=== PATIENT | female | born 1960 | race Caucasian/White ===

== ENCOUNTER 2016-06-29 10:11 | Emergency (ER) | payer MEDICAID ==
[2016-06-29 10:19] VITALS: RESP 18; O2SAT 96
--- NOTE | 2016-06-29 10:39 | EDPHY ---
H & P Time Seen by Provider: 06/29/16 10:22 HPI/ROS: CHIEF COMPLAINT: I have vertigo HISTORY OF PRESENT ILLNESS: 55-year-old female with prior history of self- described vertigo diagnosed few years ago, states that for the past 1 month she has been experiencing intermittent episodes described as sudden onset of room spinning, worse with head movement, better if she is sitting still. Symptoms spontaneously will resolve. She saw her primary care provider 1 month ago and notes that symptoms continue. Currently in emergency department she is asymptomatic. She is concerned because her job requires her to climb to heights including ladders. She has not fallen. No head or neck trauma or manipulation. No facial symptoms. No visual symptoms such as diplopia or blurry vision. No hearing loss, no tinnitus, no barotrauma. No otorrhea. No gait instability. No slurred speech. No vasculopathy history PRIMARY CARE PROVIDER: [facility] REVIEW OF SYSTEMS: A ten point review of systems was performed and is negative with the exception of the items mentioned in the HPI PAST MEDICAL & SURGICAL HISTORY: no vasculopathy history. SOCIAL HISTORY:no drug use PHYSICAL EXAM (Prior to examination, patient consented to physical exam, hands were washed and my usual and customary physical exam procedures followed) 1) GENERAL: Well-developed, well-nourished, alert and oriented. Appears to be in no acute distress. 2) HEAD: Normocephalic, atraumatic 3) HEENT: Pupils equal, round, reactive to light bilaterally. Sclera anicteric. no nystagmus Nasopharynx, oropharynx, clear, no lesions. Ears bilaterally with normal tympanic membranes. No otorrhea 4) NECK: Full range of motion, no meningeal signs. 5) LUNGS: Clear auscultation bilaterally, no wheezes, no rhonchi, no retractions. 6) HEART: Regular rate and rhythm, no murmur, no heave, no gallop. 7) ABDOMEN: No guarding, no rebound, no focal tenderness, negative McBurney's, 8) MUSCULOSKELETAL: Moving all extremities, no focal areas of tenderness, no obvious trauma. No peripheral edema or discoloration. 9) BACK: No CVA tenderness, no midline vertebral tenderness, no fluctuance, no step-off, no obvious trauma, no visual or palpable abnormality. 10) SKIN: No rash, no petechiae. 11) Psychiatric: Patient is oriented X 3, there is no agitation. 12) NEURO: Awake, alert, and oriented to person, place and time. Answers questions appropriately. There were no obvious focal neurologic abnormalities. No cerebellar dysfunction. Cranial nerves 2 through to 12 intact. Normal steady gait. Upper and lower extremities bilaterally with strength 5 / 5, reflexes 2+. Smoking Status: Light smoker Constitutional: Initial Vital Signs Temperature (C) 36.9 C 06/29/16 10:16 Heart Rate 71 06/29/16 10:16 Respiratory Rate 18 06/29/16 10:16 Blood Pressure 159/75 H 06/29/16 10:16 O2 Sat (%) 96 06/29/16 10:16 O2 Delivery Mode Room Air Allergies/Adverse Reactions: No Known Allergies Allergy (Verified 06/29/16 10:14) Home Medications: Medication Instructions Recorded Levothyroxine [Synthroid 88 mcg 88 mcg PO DAILY06 10/21/14 (*)] Lisinopril 06/29/16 Meclizine HCl [Antivert] 25 mg PO Q6 PRN #15 tab 06/29/16 MDM/Departure - [facility] ED Course/Re-evaluation: This patient has a nonfocal neurologic exam and is currently asymptomatic. She has no vasculopathy history. Patient an eye discussed potential etiologies, discussed my differential diagnosis with her. Discussed case Dr. Brandy Monaco in the ER. I think that central etiology, acoustic neuroma, vasculopathy, less than likely in this patient at this time. She remains asymptomatic while in the emergency department. At this time I do not think that emergent imaging is currently indicated. However we had a lengthy discussion provided her with my usual and customary neurologic and vertiginous precautions and instructions which include, but are not limited to, no climbing to height, no climbing of ladders and similar structures at height. She does note that her job does require to sometimes climb and I discussed the potential dangers of doing this if she is symptomatic. I am prescribing her Antivert and also recommend she not take this if she is working or planning on working. I think that follow up with primary care neurology is appropriate. Differential Diagnosis: In no particular including but not limited to benign positional vertigo, Meniere 's disease, malignancy, vasculopathy, acoustic neuroma, vestibular neuritis - Depart Disposition: Home, Routine, Self-Care Clinical Impression: Vertigo Condition: Good Instructions: Vertigo (ED) Additional Instructions: If you develop new or worsening symptoms, if you develop hearing loss, headache , neck pain, inability walk, call 911. Do not climb ladders and similar structures. Do not take the medication Antivert if you are working or going to work. Stand Alone Forms: Work Limited Duty Prescriptions: Meclizine HCl [Antivert] 25 mg PO Q6 PRN #15 tab PRN Reason: Dizziness Referrals: Samina Juarez, PAC [Primary Care Provider] - 1-2 days without fail Usman Zarate DO [Doctor of Osteopathy] - 5-7 days, call for appt. (Dr Zarate is a neurologist)
[2016-06-29 11:35] VITALS: BP 153/89; PULSE 74; TEMP 98.8
== END 2016-06-29 11:35 | disposition home or self-care (01) ==
DX: R42 Dizziness and giddiness (principal); F17.200 Nicotine dependence, unspecified, uncomplicated

== ENCOUNTER 2017-05-07 08:45 | Observation (INO) | payer MEDICAID ==
--- NOTE | 2017-05-07 09:07 | CPEKG ---
Heart Rate: 69 RR Interval: 870 P-R Interval: 144 QRSD Interval: 82 QT Interval: 396 QTC Interval: 425 P [place]: 3 QRS [place]: 20 T Wave [place]: 257 EKG Severity - ABNORMAL ECG - EKG Impression: SINUS RHYTHM EKG Impression: LVH WITH SECONDARY REPOLARIZATION ABNORMALITY Electronically Signed By: Marco Rico 08-May-2017 06:59:18
[2017-05-07] MEDS ORDERED: ASPIRIN 81 MG CHEWABLE TAB PO ONE (09:10)
[2017-05-07] MEDS ORDERED: NS 500 ML IV ONE (09:10)
--- NOTE | 2017-05-07 09:13 | EDPHY ---
General Narrative: CHIEF COMPLAINT: Chest pain HISTORY OF PRESENT ILLNESS: Patient complains of chest pain. This chest pain started abruptly at 6:30 a.m. while at rest. It is a sharp, constant left-sided retrosternal pain. No worse with exertion. She did have some diaphoresis and nausea when it started. Worse with inspiration. Some shortness of breath. No cough. No recent travel , trauma or surgery. No history of venous thrombolic event. No exogenous steroid or hormone use. No extremity erythema edema or pain. No previous coronary artery disease. No previous cardiac workup. Grandmother positive for coronary artery disease. REVIEW OF SYSTEMS: Ten systems reviewed and are negative unless otherwise noted in the HPI PCP: Dr. Samina Del Valle SPECIALISTS: None PAST MEDICAL HISTORY: Hypertension, hypothyroid, congenital murmur, postmenopausal PAST SURGICAL HISTORY: x5 SOCIAL HISTORY: Nonsmoker. Occasional alcohol. No drug use. FAMILY HISTORY: EXAMINATION General Appearance: Alert, no distress Head: normocephalic, atraumatic Eyes: Pupils equal and round, no conjunctival pallor or injection ENT, Mouth: Mucous membranes moist Neck: Normal inspection, supple, non-tender Respiratory: Lungs are clear to auscultation. No wheeze, rhonchi or crackles Cardiovascular: Regular rate and rhythm. No murmur appreciated despite stated history Gastrointestinal: Abdomen is soft and nontender Back: non-tender, no bony abnormalities Neurological: GCS 15. A&O, nonfocal, normal gait Skin: Warm and dry, no rash. No petechiae or purpura Extremities: Nontender, no pedal edema Psychiatric: Mood and affect normal DIFFERENTIAL DIAGNOSES: Including but not limited to ACS, PE, reflux, pneumonia, bronchitis, chest pain NOS MDM: 9:10 a.m. Acute chest pain of less than 3 hours duration. EKG is unremarkable. Vital signs stable. Laboratory studies pending. Chest x-ray ordered. No previous cardiac workup for diagnosis of coronary artery disease. Patient will likely need to be observed for serial troponins should the initial troponin be negative. She had 81 mg aspirin EN route, I have ordered the remaining 243 mg. 9:40 a.m. CBC unremarkable. D-dimer is negative. Troponin is pending. Chest x-ray as read by me reveals no acute finding. There is some perihilar fullness. No pneumonia. No pneumothorax. No hemothorax. 10:13 a.m. Troponin is negative. Chest x-ray has been read by radiologist is clear. I have re-evaluated the patient. Pain is still present. She has been ruled out for PE. First troponin is negative, but this is not yet sensitive enough to definitively rule out ACS. Thus I will admit her for observation and serial troponins. The patient is agreeable this. Additionally, her blood pressure is 200/160. I have ordered lisinopril p.o. as she has missed this for several days. I have also ordered a dose of morphine as her pain persist. 10:20 a.m. Case discussed with hospitalist Dr. Ring. She will admit the patient to her service. She is admitted in stable condition. - Diagnostics Imaging Results: Imaging Impressions Chest X-Ray 05/07/17 09:11 Impression: Clear lungs. No acute process. - History Smoking Status: Light smoker - Objective Vital Signs: Initial Vital Signs Temperature (C) 98.3 F 05/07/17 08:51 Heart Rate 99 05/07/17 08:51 Respiratory Rate 15 05/07/17 08:51 Blood Pressure 198/122 H 05/07/17 08:51 O2 Sat (%) 96 05/07/17 08:51 O2 Delivery Mode Room Air Allergies/Adverse Reactions: No Known Allergies Allergy (Verified 06/29/16 10:14) Home Medications: Medication Instructions Recorded Levothyroxine [Synthroid 88 mcg 88 mcg PO DAILY06 10/21/14 (*)] Lisinopril 06/29/16 Meclizine HCl [Antivert] 25 mg PO Q6 PRN #15 tab 06/29/16 Laboratory Results: Laboratory Results 05/07/17 09:12 05/07/17 09:12 05/07/17 05/07/17 05/07/17 09:12 09:12 09:12 WBC 5.92 10^3/uL 10^3/uL (3.80-9.50) RBC 4.43 10^6/uL 10^6/uL (4.18-5.33) Hgb 15.1 g/dL g/dL (12.6-16.3) Hct 41.3 % % (38.0-47.0) MCV 93.2 fL fL (81.5-99.8) MCH 34.1 pg pg (27.9-34.1) MCHC 36.6 g/dL g/dL (32.4-36.7) RDW 12.3 % % (11.5-15.2) Plt Count 280 10^3/uL 10^3/uL (150-400) MPV 10.0 fL fL (8.7-11.7) Neut % (Auto) 54.9 % % (39.3-74.2) Lymph % (Auto) 31.8 % % (15.0-45.0) [place] % (Auto) 7.6 % % (4.5-13.0) Eos % (Auto) 4.7 % % (0.6-7.6) Baso % (Auto) 0.7 % % (0.3-1.7) Nucleat RBC Rel Count 0.0 % % (0.0-0.2) Absolute Neuts (auto) 3.25 10^3/uL 10^3/uL (1.70-6.50) Absolute Lymphs (auto) 1.88 10^3/uL 10^3/uL (1.00-3.00) Absolute Monos (auto) 0.45 10^3/uL 10^3/uL (0.30-0.80) Absolute Eos (auto) 0.28 10^3/uL 10^3/uL (0.03-0.40) Absolute Basos (auto) 0.04 10^3/uL 10^3/uL (0.02-0.10) Absolute Nucleated RBC 0.00 10^3/uL 10^3/uL (0-0.01) Immature Gran % 0.3 % % (0.0-1.1) Immature Gran # 0.02 10^3/uL 10^3/uL (0.00-0.10) PT 13.5 SEC SEC (12.0-15.0) INR 1.04 (0.83-1.16) APTT 27.9 SEC SEC (23.0-38.0) D-Dimer < 0.27 ug/mLFEU ug/mLFEU (0.00-0.50) Sodium 143 mEq/L mEq/L (134-144) Potassium 3.6 mEq/L mEq/L (3.5-5.2) Chloride 105 mEq/L mEq/L (97-110) Carbon Dioxide 23 mEq/l mEq/l (22-31) Anion Gap 15 mEq/L mEq/L (8-16) BUN 13 mg/dL mg/dL (7-23) Creatinine 0.8 mg/dL mg/dL (0.6-1.0) Estimated GFR > 60 Glucose 79 mg/dL mg/dL (70-100) Calcium 10.1 mg/dL mg/dL (8.5-10.4) Troponin I < 0.012 ng/mL ng/mL (0.000-0.034) Lipase 184 IU/L IU/L (23-300) Medications Given: Discontinued Medications Aspirin (Aspirin) 243 mg PO EDNOW ONE Stop: 05/07/17 09:11 Last Admin: 05/07/17 09:30 Dose: 243 mg Sodium Chloride (Ns) 500 mls @ 0 mls/hr IV EDNOW ONE; Wide Open PRN Reason: Protocol Stop: 05/07/17 09:11 Last Admin: 05/07/17 09:30 Dose: 500 mls Departure - Departure Disposition: [facility] Inpatient Acute Clinical Impression: Acute chest pain Hypertension Qualifiers: Hypertension type: essential hypertension Qualified Code(s): I10 - Essential ( primary) hypertension Condition: Good Referrals: Samina Juarez PAC [Primary Care Provider] - As per Instructions
[2017-05-07 09:26] LABS: % IMMATURE GRANULYOCYTES 0.3 % (0.0-1.1); ABSOLUTE IMMATURE GRANULOCYTES 0.02 10^3/uL (0.00-0.10); ADD DIFF? NO; ADD MORPH? NO; ADD SCAN? NO; ATYPICAL LYMPHOCYTE FLAG 0 (0-99); FRAGMENT RBC FLAG 0 (0-99); HEMATOCRIT 41.3 % (38.0-47.0); HEMOGLOBIN 15.1 g/dL (12.6-16.3); LEFT SHIFT FLG 0 (0-99); LIPEMIA HEMOLYSIS FLAG 90 (0-99); MEAN CELL HEMOGLOBIN 34.1 pg (27.9-34.1); MEAN CELL HEMOGLOBIN CONCENTR. 36.6 g/dL (32.4-36.7); MEAN CELL VOLUME 93.2 fL (81.5-99.8); PLATELET CLUMPS FLAG 10 (0-99); PLATELET COUNT 280 10^3/uL (150-400); RED BLOOD CELL COUNT 4.43 10^6/uL (4.18-5.33); RED CELL DISTRIBUTION WIDTH 12.3 % (11.5-15.2)
[2017-05-07 09:31] LABS: INR 1.04 (0.83-1.16); PROTIME(PATIENT) 13.5 SEC (12.0-15.0)
[2017-05-07 09:32] LABS: APTT 27.9 SEC (23.0-38.0)
[2017-05-07 09:51] LABS: ANION GAP 15 mEq/L (8-16); CALCIUM 10.1 mg/dL (8.5-10.4); CARBON DIOXIDE 23 mEq/l (22-31); CHLORIDE 105 mEq/L (97-110); CREATININE 0.8 mg/dL (0.6-1.0); GLOMERULAR FILTRATION RATE > 60; GLUCOSE 79 mg/dL (70-100); POTASSIUM 3.6 mEq/L (3.5-5.2); SODIUM 143 mEq/L (134-144)
[2017-05-07 10:02] LABS: TROPONIN I < 0.012 ng/mL (0.000-0.034)
[2017-05-07] MEDS ORDERED: LISINOPRIL 20 MG TAB PO ONE ×2 (10:12→11:38)
[2017-05-07] MEDS ORDERED: ONDANSETRON 4 MG/2 ML VIAL IVP PRN (10:21)
[2017-05-07] MEDS ORDERED: ACETAMINOPHEN 325 MG TAB PO PRN (10:21)
[2017-05-07] MEDS ORDERED: ONDANSETRON DISINTEGRATING 4 MG TAB PO PRN (10:21)
[2017-05-07] MEDS ORDERED: LABETALOL HCL 50 MG/10 ML SYR IVP ONE (11:24)
[2017-05-07] MEDS ORDERED: ASPIRIN 325 MG TAB PO PRN (11:30)
[2017-05-07] MEDS ORDERED: LABETALOL HCL 5 MG/ML 20 ML MDV IVP ONE (11:45)
--- NOTE | 2017-05-07 12:06 | GHP ---
[f rep st] HISTORY AND PHYSICAL DATE OF ADMISSION: 05/07/2017 CHIEF COMPLAINT: Chest pain. HISTORY OF PRESENT ILLNESS: A 56-year-old female with a history of hypertension in the past, not actively taking medications who presents with complaints of chest pain that began at approximately 6:30 in the morning the day of presentation. Patient reports that she was eating breakfast when she noted the discomfort in her chest. Patient describes it as sharp discomfort beginning substernally on the left side of her chest and then radiating around both sides of her chest to her back and localizing on the left side of her spine subscapular. Patient describes it being associated with some shortness of breath, diaphoresis, no nausea or vomiting. Patient denies any previous episodes of pain similar to this in the past. Patient does report being prescribed blood pressure medications in the past, however she has not been taking any. Reports that she has been cutting down on her smoking and has been using dietary supplements to assist in weight loss. She reports that they do have a tendency to give her tachycardia after she takes them. Patient denies any hematuria, dysuria or lower extremity edema. Denies any headache. Reports she has had fuzzy vision and has not been to an broke handler recently. PAST MEDICAL HISTORY: 1. Hypertension. 2. Hypothyroidism. 3. Reported history of pancreatic cyst. 4. History of alcohol use in the past. SOCIAL HISTORY: Patient smokes 1-2 cigarettes a day, has cut back from previous , has approximately 10 pack year history. Reports alcohol only occasionally, less than a couple times a week. Denies illicit drugs or marijuana. FAMILY HISTORY: Positive for heart disease in an uncle as well as a grandmother. REVIEW OF SYSTEMS: A 10-point review of systems is negative with the exception of that reported in the HPI. PHYSICAL EXAMINATION: VITAL SIGNS: Blood pressure 237/125, heart rate 69, respiratory rate 16, saturating 98% on room air, 35.8. GENERAL: This is a nervous appearing middle-aged female in mild distress. HEENT: Notable for moist mucous membranes. Eye exam is negative for any icterus. CARDIAC: Patient is regular rate and rhythm. No murmurs, gallops, or rubs are appreciated. PULMONARY: She is clear to auscultation bilaterally. GASTROINTESTINAL: Positive bowel sounds. ABDOMEN: Soft. MUSCULOSKELETAL: Negative for any lower extremity edema. SKIN: Negative for any rashes. NEUROLOGIC: She is alert and oriented x3. PSYCHIATRIC: She is anxious on my interview and examination. DATA: White count 5.9, hematocrit 41.3, platelets of 280. D-dimer less than 0.27. Troponin less than 0.012. Creatinine 0.8. EKG, which I personally reviewed and interpreted, shows sinus rhythm, normal axis, normal intervals, with T-wave inversions and downsloping ST-segment in V4 through V6. Chest x-ray , which I personally reviewed and interpreted, shows no infiltrates or edema, mediastinum is normal. ASSESSMENT AND PLAN: This is a 56-year-old female presenting with chest pain. 1. Hypertensive urgency. Patient is presenting with systolic blood pressures in the 240s with reported history of hypertension, currently untreated with concomitant use of stimulant weight loss medications. Will initiate intravenous labetalol to bring down the blood pressure by approximately 20% in the next few hours. Ideally, will initiate the patient on her oral regimen that she can transition to tomorrow. Will continue telemetry monitoring and close blood pressure monitoring on the Progressive Care Unit. 2. Chest pain. The patient's initial troponin and EKG are normal. Will admit the patient to the Progressive Care Unit for telemetry, serial troponins, EKGs and ultimately stress testing if her blood pressure is better controlled by tomorrow. Again, have advised the patient on the importance of avoiding weight loss medications going forward. Will check TSH and ideally obtain nuclear imaging so we can get a good look at the patient's ejection fraction tomorrow as well. 3. Hypothyroidism. Will check TSH. Continue her home dosing of Synthroid. 4. Prophylaxis with ambulation, diet and cardiac. DISPOSITION: I expect in less than 2 midnights if the patient rules out overnight and has rapid control of her malignant hypertension that is. I have discussed the case with the emergency room physician. Patient will be triaged to the PCU for care. /[id number]/MODL MTDD
[2017-05-07 12:34] LABS: PHENCYCLIDINE URINE BCH < 6 ng/ml (NEGATIVE); PHENCYCLIDINE URINE BCH NEGATIVE (NEGATIVE); TETRAHYDROCANNABINOL URINE < 5 ng/mL (NEGATIVE); TETRAHYDROCANNABINOL URINE NEGATIVE (NEGATIVE)
--- NOTE | 2017-05-07 14:00 | CPEKG ---
Heart Rate: 64 RR Interval: 938 P-R Interval: 144 QRSD Interval: 86 QT Interval: 428 QTC Interval: 442 P [place]: 21 QRS [place]: 27 T Wave [place]: 220 EKG Severity - ABNORMAL ECG - EKG Impression: SINUS RHYTHM EKG Impression: PROBABLE LVH WITH SECONDARY REPOL ABNRM Electronically Signed By: Milton Pulido 07-May-2017 15:38:38
[2017-05-07] MEDS ORDERED: LABETALOL HCL 100 MG TAB PO PRN (14:24)
[2017-05-08] MEDS ORDERED: LEVOTHYROXINE 75 MCG TAB PO SCH (06:00)
[2017-05-08] MEDS ORDERED: REGADENOSON 0.4 MG/5 ML SYR IVP ONE (08:32)
[2017-05-08] MEDS ORDERED: ASPIRIN 325 MG TAB PO SCH (09:00)
[2017-05-08] MEDS ORDERED: HYDROCHLOROTHIAZIDE 25 MG TAB PO SCH (09:00)
[2017-05-08] MEDS ORDERED: CETIRIZINE 10 MG TAB PO SCH (09:00)
[2017-05-08] MEDS ORDERED: LISINOPRIL 40 MG TAB PO SCH (09:00)
--- NOTE | 2017-05-08 11:30 | ASMTCMCOM ---
CM Note CM Note Notes: Chart reviewed. Met with patient to discuss dc plan of care. She reports she recently broke up with her boyfriend. She reports she is homeless. Staying at skilled nursing. Trying to access housing through services at skilled nursing. Plan dc to skilled nursing when medically cleared. Date Signed: 05/08/2017 11:30 AM Electronically Signed By:Laurence Rice RN
[2017-05-08 12:02] VITALS: BP 174/100; PULSE 66; RESP 16; TEMP 98.8; O2SAT 96
--- NOTE | 2017-05-08 14:11 | CPR ---
[f rep st] NONINVASIVE CARDIAC PROCEDURE REPORT PROCEDURE: Lexiscan myocardial perfusion imaging study. SUPERVISING RN CVICU: Boogie Aguero MD INDICATION FOR PROCEDURE: Chest pressure, multiple cardiac risk factors, unable to run on treadmill. PRE: After obtaining informed consent and ensuring n.p.o. status of caffeine for greater than 12 jenna rs, patient was placed on electrocardiogram. Initial EKG shows sinus rhythm, normal axis, T-wave inv ersion in inferolateral leads, the patient denies any chest pain or shortness of breath, or symptoms suggesting of ischemia. Initial blood pressure 172/86, saturation 93%. INJECTION: Patient was given Lexiscan slow IV push, followed by nuclear isotope. Within 1 minute of injection, patient reporting flush sensation, shortness of breath, but no chest pressure or pain. E lectrocardiogram did show some deepening T-waves in inferior leads, but no other significant EKG rowley ges. Blood pressure did drop to 132/74 1 minute post injection, the patient was given caffeinated be verage, with reporting improvement of symptoms, when within 5 minutes all symptoms subsided, electroc ardiogram returned back to baseline. No malignant arrhythmias noted. The patient reporting all symp toms subsided within 5 minutes of injection. Final blood pressure of 164/84, saturation 94%. IMPRESSION: A 56-year-old female with family history of heart disease, admitted for chest pressure a nd pain, being evaluated for cardiac ischemia, noted to have abnormal electrocardiogram showing T-wav e inversion in inferolateral leads. Baseline EKG, showing potentially worsening deepening T-wave inv ersion 1 minute post injection, with return to baseline within 5 minutes, reporting flushing sensatio n and shortness of breath after injection which subsided with caffeinated beverage. Vital signs are stable. Patient is currently asymptomatic. She will finish post-stress MPI imaging in [facility] at this time. /[id number]/MODL
--- NOTE | 2017-05-08 18:41 | GDS ---
[f rep st] DISCHARGE SUMMARY DISCHARGE DIAGNOSES: Include: 1. Chest pain. 2. Hypertensive urgency. 3. Opiate abuse. 4. Tobacco dependence. HISTORY OF PRESENT ILLNESS: This is a 56-year-old female with a history of hypertension, who present s with complaints of chest pain. For details of the patient's initial presentation, please see the H istory and Physical dated 05/07/2017. CONSULTATIVE SERVICES: None. PROCEDURE: On 05/08/2017, patient had a Lexiscan cardiac stress test which showed no inducible ische sera. Ejection fraction was normal. HOSPITAL COURSE: By issue: 1. Hypertensive urgency: Patient presented with systolic blood pressures in the 200s with associate d blurring of her vision and associated chest pain. The patient was admitted to the PCU, treated ini tially with IV labetalol, and then transitioned back on to oral agents. On the day disposition arsalan anaya's systolic blood pressures are in the 160s to 170s on lisinopril 40 and hydrochlorothiazide 25. Blaise dinh is being discharged with Zestoretic as a new agent due to financial limitations and has been i nstructed to follow in her primary care office in the next 2 weeks for her 1st laboratory check post disposition on a new agent, hydrochlorothiazide. 2. Chest pain: Certainly concerning in the setting of her blood pressures. Patient's troponins and EKGs remained unchanged. Patient was taken for a cardiac stress test, and that showed no inducible ischemia or wall motion abnormalities. Patient is being discharged on her home dose of aspirin with new blood pressure agents and instructions to follow with her outpatient provider terminal gauger supervisor. MEDICATIONS AT DISPOSITION: Please reference the med rec printed on 05/08/2017. FOLLOWUP APPOINTMENTS: Include with her primary care provider in 2-3 weeks for her first laboratory check on the initiation of hydrochlorothiazide and a blood pressure check. TIME SPENT: I spent greater than 30 minutes in the planning and coordination of this discharge. PENDING STUDIES: At the time of this discharge, none. /[id number]/MODL
== END 2017-05-08 15:18 | disposition home or self-care (01) ==
LOC: F2W 10:55
PROVIDERS: ADMIT Hospitalist; ATTEND Hospitalist
DX: R07.9 Chest pain, unspecified (principal); I16.0 Hypertensive urgency; F11.10 Opioid abuse, uncomplicated; F17.210 Nicotine dependence, cigarettes, uncomplicated; I10 Essential (primary) hypertension; E03.9 Hypothyroidism, unspecified; Z82.49 Family history of ischemic heart disease and other diseases of the circulatory system; Z78.0 Asymptomatic menopausal state
CPT/HCPCS: 71020; 78452; 93005; 93017; 96374; 99285; G0378; 80307; G0480; J2785; J3490

== ENCOUNTER 2017-06-23 00:37 | Emergency (ER) | payer MEDICAID ==
--- NOTE | 2017-06-23 00:38 | EDPHY ---
H & P HPI/ROS: HPI CHIEF COMPLAINT: Left wrist deformity and pain. HISTORY OF PRESENT ILLNESS: Patient very pleasant 56-year-old female history of hypertension and thyroid disease she presents emergency room after she fell on outstretched left hand sustaining a left wrist injury. She states that she resides in a tractor trailer she was using a ladder to get up into the tractor trailer and fell off the ladder landing on her left outstretched hand. Now has 7/10 left wrist pain. She did receive 100 mcg IV fentanyl in route by EMS. She arrives neurovascular intact in a splint. She has full range of motion of her fingers. Good radial pulse but obvious deformity to left wrist. No other injuries. Past Medical History: Denies any medical history except for hypertension and thyroid disease noncompliant with her hypertension medication. Past Surgical History: Denies recent surgical history Social History: Denies daily use drugs alcohol tobacco. Family History: Noncontributory ROS REVIEW OF SYSTEMS: A comprehensive 10 point review of systems is otherwise negative aside from elements mentioned in the history of present illness. Exam Constitutional appears well nontoxic, triage nursing summary reviewed, vital signs reviewed, awake/alert. Blood pressure noted to be high. Eyes normal conjunctivae and sclera, EOMI, PERRLA. HENT normal inspection, atraumatic, moist mucus membranes, no epistaxis, neck supple/ no meningismus, no raccoon eyes. Respiratory clear to auscultation bilaterally, normal breath sounds, no respiratory distress, no wheezing. Cardiovascular rate normal, regular rhythm, no murmur, no edema, distal pulses normal. Gastrointestinal soft, non-tender, no rebound, no guarding, normal bowel sounds, no distension, no pulsatile mass. Genitourinary no CVA tenderness. Musculoskeletal left upper extremity: Obvious deformity left wrist, radial pulse, good cap refill, full range of mood, good actuarial mathematician strength, no midline vertebral tenderness, full range of motion, no calf swelling, no tenderness of extremities, no meningismus, good pulses, neurovascularly intact. Skin pink, warm, & dry, no rash, skin atraumatic. Neurologic awake, alert and oriented x 3, AAOx3, moves all 4 extremities equally, motor intact, sensory intact, CN II-XII intact, normal cerebellar, normal vision, normal speech. Psychiatric normal mood/affect. Heme/Lymph/Immune no lymphadenopathy. Differential Diagnosis: Includes but is not limited to in a particular order left wrist fracture, soft tissue injury, contusion Medical Decision Making: For this patient IV pain control with IV Dilaudid, x- ray left wrist. And most likely need reduction and splinting. Re-evaluation: 0111: X-ray left wrist reviewed. This shows a comminuted displaced and angulated left distal radius fracture. Will consult Dr. Elmore with Orthopedics. 0114AM: Dr. Elmore with Orthopedics as been consult. 0117: Patient is tender over the left distal radius. Exquisitely. She will need conscious sedation for us to reduce this distal left displaced radial head fracture. I have ordered her 100 mg propofol. Patient denies any allergies. She does report that she had multiple alcoholic beverages tonight. Procedure: Procedural sedation. Indication: Left distal displaced wrist fracture A pre-sedation evaluation was completed on the patient just prior to the procedure. Patient is an appropriate candidate for procedural sedation with ASA class 2 E. The risks of the sedation were discussed including but not limited to dysrhythmia, need for airway intervention or general anesthesia, disability, ; and verbal consent obtained. A timeout was observed and patient's identity confirmed. The patient was sedated with 30 mg IV propofol. The patient was monitored with continuous pulse oximetry, capnography, and bus monitor. There were no complications and no significant hypoxemia. I remained at the bedside for the sedation. The total time I spent in the procedural sedation was 25 0100: Patient noted to be hypertensive. She is not compliant with her lisinopril. She states she has not taken in days. Current blood pressure this time 182/114. 0151: Patient tolerated conscious sedation very well. No complications. Post reduction x-ray of the left wrist pending at this time. Patient has been placed in a sugar-tong splint. 0226: Post reduction x-ray reviewed by myself. Better alignment of the distal comminuted displaced left distal radius fracture. She is in a sugar-tong splint. She is neurovascular intact status post reduction and splint placement. This patient is post reduction x-rays reviewed by Dr. Elmore. He is fine with reduction. Patient will follow up with him in his office. 0344: Patient resting comfortably no acute distress. Patient follow up Dr. Baker outpatient for left wrist fracture. Angelica provided for pain control. Return precautions discussed with the patient. Source: Patient - Personal History Tetanus Vaccine Date: WITHIN 10 YRS - Medical/Surgical History Hx Asthma: No Hx Chronic Respiratory Disease: No Hx Diabetes: No Hx Cardiac Disease: No Hx Renal Disease: No Hx Cirrhosis: No Hx Alcoholism: Yes Hx HIV/AIDS: No Hx Splenectomy or Spleen Trauma: No Other PMH: "Mild stroke", HYPERTHYROID, HYPOGLYCEMIC, PANCREATIC CYST, BREAST LUMP,HTN;vertigo - Social History Smoking Status: Light smoker Constitutional: Initial Vital Signs Temperature (C) 37.2 C 06/23/17 00:52 Heart Rate 65 06/23/17 00:52 Respiratory Rate 18 06/23/17 00:52 Blood Pressure 214/125 H 06/23/17 00:52 O2 Sat (%) 99 06/23/17 00:52 O2 Delivery Mode [Procedural Non-Rebreather Mask 3rd] O2 Delivery Mode [Procedural Non-Rebreather Mask 2nd] O2 Delivery Mode [Procedural Non-Rebreather Mask 1st] O2 Delivery Mode Non-Rebreather Mask O2 (L/minute) [Procedural 3rd] 15 O2 (L/minute) [Procedural 2nd] 15 O2 (L/minute) [Procedural 1st] 15 O2 (L/minute) 10 Allergies/Adverse Reactions: No Known Allergies Allergy (Verified 06/23/17 00:57) Home Medications: Medication Instructions Recorded Levothyroxine [Synthroid 75 mcg 75 mcg PO DAILY06 05/07/17 (*)] Lisinopril/Hydrochlorothiazide 2 tab PO DAILY #60 tablet 05/08/17 [Zestoretic 20-12.5 mg Tablet] Hydrocodone/APAP 5/325 [Angelica 1 - 2 tab PO Q4H PRN #10 tab 06/23/17 5/325] Medical Decision Making - Data Points Medications Given: Lisinopril (Zestril) 20 mg PO DAILY HAVEN Stop: 12/20/17 08:59 Last Admin: 06/23/17 03:08 Dose: 20 mg Discontinued Medications Hydrocodone Bitart/Acetaminophen (Angelica 5/325) 2 tab PO EDNOW ONE Stop: 06/23/17 03:11 Last Admin: 06/23/17 03:13 Dose: 2 tab Hydromorphone HCl (Dilaudid) 1 mg IVP EDNOW ONE Stop: 06/23/17 01:13 Last Admin: 06/23/17 01:30 Dose: 1 mg Sodium Chloride (Ns) 1,000 mls @ 0 mls/hr IV ONCE ONE PRN Reason: Wide Open Stop: 06/23/17 01:18 Last Admin: 06/23/17 01:30 Dose: 1,000 mls Ondansetron HCl (Zofran) 4 mg IVP EDNOW ONE Stop: 06/23/17 01:18 Last Admin: 06/23/17 01:30 Dose: 4 mg Propofol (Diprivan) 100 mg IVP EDNOW ONE Stop: 06/23/17 01:16 Last Admin: 06/23/17 01:46 Dose: 30 mg Departure - Departure Disposition: Home, Routine, Self-Care Clinical Impression: Wrist fracture Qualifiers: Encounter type: initial encounter Fracture type: closed Laterality: left Qualified Code(s): S62.102A - Fracture of unspecified carpal bone, left wrist, initial encounter for closed fracture Condition: Good Instructions: Hydrocodone/Acetaminophen (By mouth), Wrist Fracture in Adults ( ED) Additional Instructions: 1. Follow up with Orthopedics. 2. Call for an appointment. 3. Return emergency room if you have worsening symptoms questions or concerns. Referrals: Patient,NotPresent [Primary Care Provider] - As per Instructions Eddie Elmore MD [Medical Doctor] - As per Instructions Prescriptions: Hydrocodone/APAP 5/325 [Angelica 5/325] 1 - 2 tab PO Q4H PRN #10 tab PRN Reason: Pain, Moderate
[2017-06-23] MEDS ORDERED: HYDROmorphONE/DILAUDID 1 MG/ML INJ IVP ONE (01:12)
[2017-06-23] MEDS ORDERED: PROPOFOL 200 MG/20 ML VIAL IVP ONE (01:15)
[2017-06-23] MEDS ORDERED: ONDANSETRON 4 MG/2 ML VIAL IVP ONE (01:17)
[2017-06-23] MEDS ORDERED: NS 1,000 ML IV ONE (01:17)
[2017-06-23] MEDS ORDERED: LISINOPRIL 20 MG TAB ONE (03:06)
[2017-06-23] MEDS ORDERED: HYDROCODONE/APAP 5/325 TAB PO ONE (03:10)
[2017-06-23] MEDS ORDERED: HYDROCOD/APAP 5/325 PREPACK#6 BTL TAKEHOME ONE (03:42)
[2017-06-23 03:56] VITALS: BP 164/91; PULSE 62; RESP 20; TEMP 98.6; O2SAT 96
[2017-06-23] MEDS ORDERED: LISINOPRIL 20 MG TAB PO SCH (09:00)
== END 2017-06-23 03:55 | disposition home or self-care (01) ==
LOC: EDUNIT# → EEVIPCON 00:37
PROC: 0PSJXZZ Reposition Left Radius, External Approach (ICD-10-PCS; principal; 2017-06-23)
DX: S52.502A Unspecified fracture of the lower end of left radius, initial encounter for closed fracture (principal); I10 Essential (primary) hypertension; F17.200 Nicotine dependence, unspecified, uncomplicated; W11.XXXA Fall on and from ladder, initial encounter; Y92.89 Other specified places as the place of occurrence of the external cause; Y93.89 Activity, other specified
CPT/HCPCS: 96374; J1170; J2405; J2704

== ENCOUNTER → 2017-07-04 | Day surgery (SDC) | payer MEDICAID | LOC: FSGY 12:50 | PROVIDERS: ATTEND Orthopaedic Surgery | DX: S52.502A Unspecified fracture of the lower end of left radius, initial encounter for closed fracture (principal); Z53.9 Procedure and treatment not carried out, unspecified reason ==

== ENCOUNTER 2018-07-13 08:18 | Emergency (ER) | payer MEDICAID ==
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
[2018-07-13] MEDS ORDERED: IBUPROFEN 600 MG TAB PO ONE (08:28)
[2018-07-13 09:50] VITALS: BP 192/114
--- NOTE | 2018-07-13 17:54 | ASMTCMCOM ---
CM Note CM Note Notes: Requested to assist pt w/getting to the [facility] in [place] after 2pm. Pt waited in the waiting area until she could call [facility] at 2pm (per [facility] request). This CM provided a cab voucher to the area requested by [facility] staff. CM available for further assistance if needed. Date Signed: 07/13/2018 05:53 PM Electronically Signed By:Inocencia Chatterjee RN
== END 2018-07-13 09:47 | disposition home or self-care (01) ==
LOC: EDUNIT#
DX: S40.012A Contusion of left shoulder, initial encounter (principal); S10.91XA Abrasion of unspecified part of neck, initial encounter; S70.12XA Contusion of left thigh, initial encounter; Y04.2XXA Assault by strike against or bumped into by another person, initial encounter; Y07.03 Male partner, perpetrator of maltreatment and neglect; F17.200 Nicotine dependence, unspecified, uncomplicated; I10 Essential (primary) hypertension; E03.9 Hypothyroidism, unspecified; Z87.81 Personal history of (healed) traumatic fracture